=== PATIENT | female | born 1965 | race Caucasian/White ===

== ENCOUNTER 2024-10-12 17:09 | Emergency (ER) | payer MEDICAID ==
[~2024-10-12] VITALS: Ht 154.9 cm; Wt 66.0 kg
[2024-10-12 17:13] VITALS: O2SAT 100
[2024-10-12 20:53] LABS: CLARITY URINE CLEAR (CLEAR); COLOR URINE YELLOW (YELLOW); GLUCOSE URINE NEGATIVE (NEGATIVE); KETONES URINE NEGATIVE (NEGATIVE); LEUKOCYTE ESTERASE URINE 2+ (NEGATIVE); NITRITE URINE NEGATIVE (NEGATIVE); OCCULT BLOOD URINE NEGATIVE (NEGATIVE); PROTEIN URINE NEGATIVE (NEGATIVE); SPECIFIC GRAVITY URINE 1.021 (1.005-1.030); UROBILINOGEN URINE 0.2 E.U./dL (0.2-1.0)
[2024-10-12] MEDS: KETOROLAC 15MG/ML VIAL IM ONE (21:07)
[2024-10-12 21:24] LABS: RBC URINE NONE SEEN /hpf (0-2); SQUAMOUS EPITHELIAL CELL URINE FEW /lpf (RARE/1+)
[2024-10-12 21:25] LABS: BACTERIA URINE NONE SEEN
[2024-10-12] MEDS ORDERED: NAPR-1176 MT (23:11)
[2024-10-12] MEDS ORDERED: LIDO700A15 TP (23:11)
[2024-10-12] MEDS ORDERED: CEPH500C2 MT (23:13)
[2024-10-12 23:30] VITALS: BP 168/98; PULSE 66; RESP 18; TEMP 36.6; O2SAT 100
== END 2024-10-12 23:32 | disposition home or self-care (01) ==
LOC: ER 17:09
DX: N20.0 Calculus of kidney (principal); N39.0 Urinary tract infection, site not specified; Z79.1 Long term (current) use of non-steroidal anti-inflammatories (NSAID); Z98.890 Other specified postprocedural states; Z79.899 Other long term (current) drug therapy
CPT/HCPCS: 99285; 74176; 81003; 96372; J1885